=== PATIENT | female | born 1955 | race African-American/Black ===

== ENCOUNTER 2016-06-03 14:58 | Outpatient (CLI) | payer OTHER ==
[~2016-06-03 14:58] MED LIST: ALBUSOL IN; AMLO2.5T PO; FURO40TA93 PO; K-TAB20 MEQ PO; METO50TA27 PO; PANT40TA PO; PRED5TAB3 PO; RENA-VITE OR; SEVE800T PO; TRAM50TA PO; XALATAN0.005 % OP
== END 2016-06-03 19:17 | disposition home or self-care (01) ==
LOC: LAB 14:58
DX: D64.89 Other specified anemias (principal)
CPT/HCPCS: 85018

== ENCOUNTER 2017-06-28 14:04 | Outpatient (CLI) | payer OTHER | END 2017-06-28 22:27 | disposition home or self-care (01) | LOC: LAB 14:04 | DX: D64.89 Other specified anemias (principal) | CPT/HCPCS: 85014; 85018 ==

== ENCOUNTER 2017-08-30 15:11 | Outpatient (CLI) | payer OTHER | END 2017-08-30 21:48 | disposition home or self-care (01) | LOC: LAB 15:11 | DX: D64.89 Other specified anemias (principal) | CPT/HCPCS: 85018 ==

== ENCOUNTER 2017-09-01 14:09 | Outpatient (CLI) | payer OTHER | END 2017-09-01 14:10 | disposition short-term general hospital (02) | LOC: AMB 14:09 | DX: R53.1 Weakness (principal); Z99.2 Dependence on renal dialysis | CPT/HCPCS: A0425; A0429 ==

== ENCOUNTER 2017-09-01 14:15 | Inpatient (IN) | payer OTHER ==
[2017-09-01] VITALS (10 sets, daily range): BP systolic 115–144; BP diastolic 57–77; TEMP 97.2–98.2; Ht 154.9 cm; Wt 77.6 kg
[~2017-09-01] VITALS: Ht 154.9 cm; Wt 77.6 kg
[2017-09-01 20:10] LABS: PLATELET COUNT 406 K/uL (152-353)
[2017-09-01 20:18] LABS: POTASSIUM 2.8 mmol/L (3.6-5.2)
[2017-09-02] VITALS: BP 120/68; TEMP 98.4
[2017-09-02 05:11] LABS: PLATELET COUNT 344 K/uL (152-353)
[2017-09-02 06:12] LABS: POTASSIUM 3.4 mmol/L (3.6-5.2)
[2017-09-02 08:03] VITALS: BP 124/58; TEMP 97.8
[2017-09-02 12:39] VITALS: BP 135/77; TEMP 97.5
[2017-09-02 15:51] VITALS: BP 108/71; TEMP 98.4
[2017-09-02 20:00] VITALS: BP 146/75; TEMP 98.6
[2017-09-03] VITALS: BP 138/80; TEMP 98.2
[2017-09-03 04:00] VITALS: BP 144/85; BP 157/82; TEMP 98.1
[2017-09-03 05:20] LABS: PLATELET COUNT 297 K/uL (152-353)
[2017-09-03 06:07] LABS: POTASSIUM 3.7 mmol/L (3.6-5.2)
[2017-09-03 08:00] VITALS: BP 144/85; TEMP 98.1
[2017-09-03 12:00] VITALS: BP 109/82; TEMP 98
[2017-09-03 16:00] VITALS: BP 145/87; TEMP 98.5
[2017-09-03 19:36] VITALS: BP 149/83; TEMP 98.4
[2017-09-04 00:20] VITALS: BP 140/80; TEMP 98.5
[2017-09-04 04:00] VITALS: BP 146/81; TEMP 97.7
[2017-09-04 05:31] LABS: PLATELET COUNT 291 K/uL (152-353)
[2017-09-04 05:43] LABS: POTASSIUM 4.6 mmol/L (3.6-5.2)
[2017-09-04 07:15] VITALS: BP 147/85; TEMP 98.1
== END 2017-09-04 16:40 | disposition short-term general hospital (02) | DRG 193 ==
LOC: ED 14:15 → MED/SURG 19:50
PROVIDERS: ADMIT Emergency Medicine
DX: J18.8 Other pneumonia, unspecified organism (principal); N18.6 End stage renal disease; I12.0 Hypertensive chronic kidney disease with stage 5 chronic kidney disease or end stage renal disease; Z99.2 Dependence on renal dialysis
CPT/HCPCS: 36415; 36430; 36591; 80053; 85027; 86850; 86900; 86901; 86922; 87040; 93005; 94640; 94664; 94760; 99283; J0696; J3370; P9016

== ENCOUNTER 2017-09-04 16:25 | Outpatient (CLI) | payer OTHER | END 2017-09-04 17:26 | disposition short-term general hospital (02) | LOC: AMB 16:25 | DX: J18.8 Other pneumonia, unspecified organism (principal); N18.6 End stage renal disease; I12.0 Hypertensive chronic kidney disease with stage 5 chronic kidney disease or end stage renal disease; Z99.2 Dependence on renal dialysis | CPT/HCPCS: A0425; A0427 ==

== ENCOUNTER 2018-02-28 14:38 | Outpatient (CLI) | payer OTHER | END 2018-02-28 21:17 | disposition home or self-care (01) | LOC: LAB 14:38 | DX: D64.9 Anemia, unspecified (principal) | CPT/HCPCS: 85014; 85018 ==

== ENCOUNTER 2020-04-15 13:15 | Outpatient (CLI) | payer OTHER | END 2020-04-15 23:59 | disposition home or self-care (01) | LOC: LAB 13:15 | PROVIDERS: ATTEND Internal Medicine Nephrology | DX: D64.89 Other specified anemias (principal) | CPT/HCPCS: 85014; 85018 ==

== ENCOUNTER 2020-04-29 14:57 | Outpatient (CLI) | payer OTHER | END 2020-04-29 22:00 | disposition home or self-care (01) | LOC: LAB 14:57 | PROVIDERS: ATTEND Internal Medicine Nephrology | DX: D64.9 Anemia, unspecified (principal) | CPT/HCPCS: 85014; 85018 ==